=== PATIENT | male | born 1990 | race Caucasian/White ===

== ENCOUNTER 2023-05-12 12:17 | Emergency (ER) | payer SELFPAY ==
[~2023-05-12] VITALS: Ht 182.9 cm; Wt 106.6 kg
[2023-05-12 12:46] VITALS: BP 140/87; PULSE 82; RESP 16; TEMP 98.2; O2SAT 99
[2023-05-12] MEDS ORDERED: HYDR4CRE2 RC (14:21)
== END 2023-05-12 14:25 | disposition home or self-care (01) ==
LOC: ER 12:17
DX: K64.4 Residual hemorrhoidal skin tags (principal)
CPT/HCPCS: 99282